=== PATIENT | female | born 1955 | race African-American/Black ===

== ENCOUNTER 2017-11-13 09:27 | Outpatient (CLI) | payer SELFPAY ==
--- NOTE | 2017-11-18 10:10 | MMO ---
BILATERAL SCREENING MAMMOGRAM: DATE: 11/13/17 HISTORY: 62-year-old female for screening mammography. COMPARISON: 08/29/16, 08/24/15. FINDINGS: Bilateral MLO and CC views of the breasts show scattered fibroglandular breast tissue. Vascular calci fications are seen. There is no evidence of suspicious mass, suspicious cluster of microcalcification s, or area of architectural distortion. Interpretation of this mammogram was performed with the assistance of computer-aided detection. IMPRESSION: BIRADS 2: Benign Finding(s) Annual screening mammography is recommended. POS: [facility]
== END 2017-11-13 09:28 | disposition home or self-care (01) ==
LOC: SCSMAMMO 09:27
PROVIDERS: ATTEND Family Medicine
DX: Z12.31 Encounter for screening mammogram for malignant neoplasm of breast (principal)
CPT/HCPCS: 77067

== ENCOUNTER 2021-04-24 10:44 | Outpatient (CLI) | payer OTHER | END 2021-04-24 10:45 | disposition home or self-care (01) | LOC: BICULT 10:44 | PROVIDERS: ATTEND Family Medicine | DX: R94.6 Abnormal results of thyroid function studies (principal) | CPT/HCPCS: 76536 ==

== ENCOUNTER 2022-01-11 09:52 | Outpatient (CLI) | payer MEDICARE | END 2022-01-11 09:53 | disposition home or self-care (01) | LOC: BICMAMMO 09:52 | PROVIDERS: ATTEND Family Medicine | DX: Z12.31 Encounter for screening mammogram for malignant neoplasm of breast (principal); Z80.3 Family history of malignant neoplasm of breast | CPT/HCPCS: 77063; 77067 ==

== ENCOUNTER 2022-12-26 14:30 | Outpatient (CLI) | payer MEDICARE | END 2022-12-26 14:31 | disposition home or self-care (01) | LOC: BICULT 14:30 | PROVIDERS: ATTEND Family Medicine | DX: R93.89 Abnormal findings on diagnostic imaging of other specified body structures (principal); E04.2 Nontoxic multinodular goiter | CPT/HCPCS: 76536 ==

== ENCOUNTER 2024-02-11 11:07 | Outpatient (CLI) | payer MEDICARE | END 2024-02-11 11:08 | disposition home or self-care (01) | LOC: BICMAMMO 11:07 | PROVIDERS: ATTEND Nurse Practitioner Family | DX: Z12.31 Encounter for screening mammogram for malignant neoplasm of breast (principal); Z80.3 Family history of malignant neoplasm of breast | CPT/HCPCS: 77063; 77067 ==

== ENCOUNTER 2024-05-06 10:17 | Outpatient (CLI) | payer MEDICARE | END 2024-05-06 10:18 | disposition home or self-care (01) | LOC: BICMAMMO 10:17 | PROVIDERS: ATTEND Nurse Practitioner Family | DX: Z13.820 Encounter for screening for osteoporosis (principal); Z78.0 Asymptomatic menopausal state; M85.851 Other specified disorders of bone density and structure, right thigh; M85.852 Other specified disorders of bone density and structure, left thigh; M81.0 Age-related osteoporosis without current pathological fracture | CPT/HCPCS: 77080 ==